=== PATIENT | female | born 2000 | race Caucasian/White ===

== ENCOUNTER → 2024-12-14 19:17 | Outpatient (REF) | payer BC, SELFPAY | LOC: WDC 19:17 | PROVIDERS: ATTENDING PHYSICIAN Physician Assistant | DX: Z12.31 Encounter for screening mammogram for malignant neoplasm of breast (principal); Z80.3 Family history of malignant neoplasm of breast | CPT/HCPCS: 77063; 77067 ==

== ENCOUNTER → 2024-12-27 09:43 | Outpatient (REF) | payer BC, SELFPAY | LOC: WDC 09:43 | PROVIDERS: ATTENDING PHYSICIAN Physician Assistant | DX: R92.8 Other abnormal and inconclusive findings on diagnostic imaging of breast (principal); Z80.3 Family history of malignant neoplasm of breast | CPT/HCPCS: 76642 ==

== ENCOUNTER 2025-01-09 13:04 | Emergency (ER) | payer BC, SELFPAY ==
[2025-01-09 13:09] VITALS: BP 112/73
--- NOTE | 2025-01-09 14:44 | ED.GENMED ---
History of Present Illness
General
Chief Complaint: Facial Problem
Source: patient
Exam Limitations: none
Time Seen by Provider: 01/09/25 14:16
History of Present Illness
History of Present Illness:
24yoF with a history of anxiety and seasonal allergies presenting for evaluation of nasal drainage. Patient states she bent over with her head between her legs in the middle of the night to fix her hair. She suddenly noticed nasal drainage which
tasted metallic. She thought it may be blood initially but it was clear in appearance. She has not had any further drainage since that episode at 1:30am. She tried to bend over at work today to see if it would reproduce her symptoms and she did
not have any drainage. Patient researched her symptoms on [employer] and she is very worried that she has a CSF leak. She has a minor headache currently which she believes is from the weather. She is otherwise asymptomatic and denies any head trauma,
visual changes, ear drainage, prior facial/brain surgeries. Of note, patient was sick with a cold 2 weeks ago.
Phy Exam
General Physical Exam
General Presentation: well appearing and no apparent distress
General age: appears stated age
General Skin: warm and dry
General Habitus: normal
General Mental: alert
ENT Exam
ENT Exam: TM's normal, pharynx normal, neck supple and normocephalic
Additional ENT: No nasal congestion or drainage noted.
Eye Exam
Eye Exam: PERRL
Neurological Exam
Neurological Exam: alert and no motor deficits
[place] Coma Scale
Eye Opening: Spontaneous
Verbal Response: Oriented
Motor Response: Obeys Commands
GCS Total Score: 15
Course
Orders/Labs/Results
Orders:
Orders
01/09/25 15:12
CT Facial Bones W/o Iv Contras Urgent
Comment:
Reason For Exam: headache, nasal drainage
CT Head W/o Iv Contrast Urgent
Comment:
Reason For Exam: headache
Vital Signs
Initial and Last Documented VS:
Initial Vital Signs
Temp Pulse Resp BP Pulse Ox
98.2 F 89 16 112/73 98
01/09/25 13:09 01/09/25 13:09 01/09/25 13:09 01/09/25 13:09 01/09/25 13:09
Last Documented Vital Signs
Temp Pulse Resp BP Pulse Ox
98.2 F 88 18 113/78 98
01/09/25 13:09 01/09/25 20:03 01/09/25 20:03 01/09/25 20:03 01/09/25 20:03
MDM/Problems Addressed
Differential Diagnosis Includes:
24yoF here after an episode of clear nasal drainage after bending over last night. Believes she has a CSF leak. No further nasal drainage in the past 12 hours. No recent facial/sinus surgery or trauma. She was sick 2 weeks ago with a URI. Exam is
reassuring without any nasal congestion.
Suspect symptoms are related to sinusitis or allergies. Discussed with patient that I have a very low clinical suspicion for a CSF leak given normal exam and lack of continuous drainage. Patient very worried and is requesting imaging. CT head and
facial bones ordered.
*Critical Care Note
Total Time (30-74mins, 75-104mins- exclusive of procedures): Not Applicable
Update Note
Update Note:
Imaging negative for fracture and intracranial abnormalities. Maxillary sinusitis seen on CT. Her symptoms are improving, no indication for abx. Supportive care discussed. Advised f/u with PCP. She was discharged in stable condition.
ED Attending Note
-
Portions of this chart may have been created with voice recognition software.� Occasional wrong word or��sound alike� substitutions may have occurred due to the inherent limitations of voice recognition software.
Discharge Plan
Departure
Patient Disposition: Home (Routine Discharge)
Date of Disposition: 01/09/25
Time of Disposition: 19:38
Patient with high blood pressure during this ER visit?: No
Discharge Problem:
Sinusitis
Instructions: Sinusitis, Adult (DC)
Prescriptions:
No Action
No Current Medications
ondansetron 4 MG tablet,disintegrating
4 mg PO TIDPRN PRN (Reason: NAUSEA) Qty: 10 0RF
Referrals:
Ruth Ann Badillo PA [Family Provider] -
Activity Restrictions/Additional Instructions:
Use Flonase nasal spray and Mucinex for congestion.
Please follow-up with your family doctor. Return to the ER with any new or worsening symptoms.
Interventions
Interventions:
*Risk Screen - Suicide Last Done: 01/09/25 13:09
*General Assessment Last Done: 01/09/25 13:57
*Neglect/Abuse Screening Last Done: 01/09/25 13:09
*ED COVID-19 Vaccine History Last Done: 01/09/25 13:57
*Nursing Disposition Last Done: 01/09/25 20:03
ED- Neurological Assessment Last Done: 01/09/25 13:57
ED-Skin Assessment Last Done: 01/09/25 13:57
Discharge Date and Time
Discharge Date/Time: 01/09/25 20:05
Print Language: STATELESS
[2025-01-09 20:03] VITALS: BP 113/78
== END 2025-01-09 20:05 | disposition home or self-care (01) ==
LOC: EMR 13:04
PROVIDERS: EMERGENCY PHYSICIAN Student in an Organized Health Care Education/Training Program; FAMILY PHYSICIAN Physician Assistant
DX: J01.00 Acute maxillary sinusitis, unspecified (principal); R51.9 Headache, unspecified; F41.9 Anxiety disorder, unspecified; Z91.048 Other nonmedicinal substance allergy status
CPT/HCPCS: 99284; 70450; 70486